=== PATIENT | female | born 1975 | race Caucasian/White ===

== ENCOUNTER 2016-09-01 19:14 | Emergency (ER) | payer OTHER ==
[~2016-09-01] VITALS: Ht 154.9 cm; Wt 93.9 kg
[~2016-09-01 19:14] MED LIST: Ambien PO; LAMOTRIGINE100 MG PO; LAMOTRIGINE25 M2 PO; LaMICtal PO; MACROBID100 MG PO; MACRODANTIN100 MG PO; MOTRIN600 MG PO; QUETIAPINE FUM300 MG PO; RISPERDAL2 MG PO; RISPERIDONE2 MG PO; Risperidone PO; SEROQUEL200 MG PO; SERTRALINE HCL50 MG PO; ULTRAM50 MG PO; ZOLPIDEM TARTRAT5 MG PO
[2016-09-01 19:42] VITALS: BP 102/79
[2016-09-01 20:07] LABS: ADD MIUA? YES; BILIRUBIN NEGATIVE; BLOOD NEGATIVE; COLOR YELLOW ((YELLOW)); GLUCOSE (STRIP) NEGATIVE; KETONES NEGATIVE; LEUKOCYTES NEGATIVE; NITRITE NEGATIVE; PROTEIN (STRIP) NEGATIVE; SPECIFIC GRAVITY 1.029 (1.000-1.030); UROBILINOGEN 0.2 MG/DL (0.2-1.0)
[2016-09-01 20:41] LABS: BACTERIA NONE SEEN; CASTS NONE SEEN /LPF; CRYSTALS NONE SEEN; EPITHELIAL CELLS 4+; MUCUS 4+; RED BLOOD CELLS 0-5 /HPF (0-5); UCUL ADDED? NO; WHITE BLOOD CELLS 0-5 /HPF (0-5)
[2016-09-01] MEDS ORDERED: CIPRO500 MG PO (21:16)
== END 2016-09-01 22:14 | disposition home or self-care (01) ==
LOC: EME 19:14 → RME 19:14
DX: R10.32 Left lower quadrant pain (principal); R11.0 Nausea; F17.200 Nicotine dependence, unspecified, uncomplicated
CPT/HCPCS: 80053; 81003; 84702; 85027; 99281; 99284

== ENCOUNTER 2016-10-02 20:08 | Emergency (ER) | payer OTHER ==
[~2016-10-02] VITALS: Ht 154.9 cm; Wt 95.8 kg
[~2016-10-02 20:08] MED LIST changes: +CIPRO500 MG PO
[2016-10-02] MEDS ORDERED: PEPCID20 MG PO (22:06)
[2016-10-02 23:09] VITALS: BP 111/71
== END 2016-10-02 23:09 | disposition home or self-care (01) ==
LOC: EME 20:08
DX: L29.9 Pruritus, unspecified (principal); L85.9 Epidermal thickening, unspecified
CPT/HCPCS: 73630; 99281; 99284; Q0177

== ENCOUNTER 2016-11-12 14:48 | Emergency (ER) | payer OTHER ==
[~2016-11-12] VITALS: Ht 154.9 cm; Wt 96.0 kg
[~2016-11-12 14:48] MED LIST changes: +PEPCID20 MG PO
[2016-11-12 16:06] LABS: ADD MIUA? YES; BILIRUBIN NEGATIVE; BLOOD NEGATIVE; COLOR YELLOW ((YELLOW)); GLUCOSE (STRIP) NEGATIVE; KETONES NEGATIVE; LEUKOCYTES NEGATIVE; NITRITE NEGATIVE; PROTEIN (STRIP) NEGATIVE; SPECIFIC GRAVITY 1.018 (1.000-1.030); UROBILINOGEN 0.2 MG/DL (0.2-1.0)
[2016-11-12 16:22] LABS: BACTERIA 2+ /HPF; CASTS NONE SEEN /LPF; CRYSTALS NONE SEEN; EPITHELIAL CELLS 3+ /HPF; MUCUS TRACE /LPF; RED BLOOD CELLS RARE /HPF (0-5); WHITE BLOOD CELLS RARE /HPF (0-5)
[2016-11-12] MEDS ORDERED: TRAMADOL HCL50 MG PO (16:25)
[2016-11-12 16:54] LABS: HEMATOCRIT 40.9 % (36.0-46.0); MCH 29.9 PG (29.0-34.0); MCHC 32.3 G/DL (30.0-36.0); MCV 92.5 FL (83-99); MEAN PLAT.VOLUME 10.1 uM^3 (9.5-12.4); PLATELET COUNT 278 K/uL (156-360); RBC DIS.WIDTH-CV 12.8 % (11.8-14.6); RBC DIS.WIDTH-SD 43.8 % (39-53); RED BLOOD COUNT 4.42 M/uL (3.80-5.20); WHITE BLOOD COUNT 9.7 K/uL (4.1-10.2)
[2016-11-12 17:01] LABS: CHLORIDE 106 mEq/L (99-109); POTASSIUM 3.8 mEq/L (3.7-5.4); SODIUM 140 mEq/L (136-147)
[2016-11-12 17:03] LABS: GLUCOSE 101 mg/dL (70-99)
[2016-11-12 17:05] LABS: ANION GAP 7 MEQ/L (2-14); TOTAL BILIRUBIN 0.2 mg/dL (0.0-1.0)
[2016-11-12 17:07] LABS: ALKALINE PHOSPHATASE 51 IU/L (3-129); GFR ESTIMATE (CALCULATED) > 59 mL/min/
[2016-11-12 17:08] LABS: UREA NITROGEN (BUN) 13 mg/dL (9-23)
[2016-11-12 17:10] LABS: LIPASE 11 U/L (1.0-51.0)
[2016-11-12] MEDS ORDERED: ZOFRAN4 MG PO (20:57)
[2016-11-12 21:04] VITALS: BP 111/60
[2016-11-17 12:25] LABS: CHLAMYDIA TRACHOMATIS NEGATIVE; NEISSERIA GONORRHOEAE NEGATIVE
== END 2016-11-12 21:05 | disposition home or self-care (01) ==
LOC: EME 14:48
PROVIDERS: Nurse Practitioner Family; Physician Assistant
DX: N20.0 Calculus of kidney (principal); R10.30 Lower abdominal pain, unspecified; F17.200 Nicotine dependence, unspecified, uncomplicated
CPT/HCPCS: 74177; 80053; 81003; 83690; 85027; 87210; 87491; 87591; 99281; 99284; J7030

== ENCOUNTER 2017-06-14 00:19 | Emergency (ER) | payer OTHER ==
[~2017-06-14] VITALS: Ht 154.9 cm; Wt 103.0 kg
[~2017-06-14 00:19] MED LIST changes: +TRAMADOL HCL50 MG PO; +ZOFRAN4 MG PO
[2017-06-14 01:01] LABS: HEMATOCRIT 37.7 % (36.0-46.0); MCH 31.6 PG (29.0-34.0); MCHC 33.7 G/DL (30.0-36.0); MCV 93.8 FL (83-99); MEAN PLAT.VOLUME 10.2 uM^3 (9.5-12.4); PLATELET COUNT 222 K/uL (156-360); RBC DIS.WIDTH-CV 13.7 % (11.8-14.6); RBC DIS.WIDTH-SD 46.6 % (39-53); RED BLOOD COUNT 4.02 M/uL (3.80-5.20); WHITE BLOOD COUNT 11.2 K/uL (4.1-10.2)
[2017-06-14 01:08] LABS: CHLORIDE 106 mEq/L (99-109); POTASSIUM 3.7 mEq/L (3.7-5.4); SODIUM 138 mEq/L (136-147)
[2017-06-14 01:10] LABS: GLUCOSE 92 mg/dL (70-99)
[2017-06-14 01:11] LABS: ANION GAP 11 MEQ/L (2-14)
[2017-06-14 01:14] LABS: GFR ESTIMATE (CALCULATED) > 59 mL/min/
[2017-06-14 01:15] LABS: UREA NITROGEN (BUN) 16 mg/dL (9-23)
[2017-06-14 01:26] LABS: ADD MIUA? YES; BILIRUBIN NEGATIVE; BLOOD NEGATIVE; COLOR YELLOW ((YELLOW)); GLUCOSE (STRIP) NEGATIVE; KETONES NEGATIVE; LEUKOCYTES MODERATE; NITRITE NEGATIVE; PROTEIN (STRIP) NEGATIVE; SPECIFIC GRAVITY 1.024 (1.000-1.030); UROBILINOGEN 0.2 MG/DL (0.2-1.0)
[2017-06-14 01:52] LABS: BACTERIA 2+ /HPF; CASTS NONE SEEN /LPF; CRYSTALS NONE SEEN; EPITHELIAL CELLS 3+ /HPF; MUCUS NONE SEEN /LPF; RED BLOOD CELLS NONE SEEN /HPF (0-5); UCUL ADDED? YES; WHITE BLOOD CELLS 0-5 /HPF (0-5)
[2017-06-14] MEDS ORDERED: MACROBID100 MG PO (02:45)
[2017-06-14 03:17] VITALS: BP 148/87
== END 2017-06-14 03:17 | disposition home or self-care (01) ==
LOC: EME 00:19
DX: N39.0 Urinary tract infection, site not specified (principal); R10.9 Unspecified abdominal pain; Z87.440 Personal history of urinary (tract) infections; Z87.442 Personal history of urinary calculi; F17.200 Nicotine dependence, unspecified, uncomplicated; F32.9 Major depressive disorder, single episode, unspecified; K21.9 Gastro-esophageal reflux disease without esophagitis; Z88.1 Allergy status to other antibiotic agents
CPT/HCPCS: 74176; 80048; 81003; 85027; 87086

== ENCOUNTER 2018-03-28 14:31 | Emergency (ER) | payer OTHER ==
[~2018-03-28] VITALS: Ht 154.9 cm; Wt 111.6 kg
[2018-03-28 15:15] LABS: APPEARANCE CLOUDY ((CLEAR)); BILIRUBIN NEGATIVE; BLOOD SMALL; COLOR YELLOW ((YELLOW)); GLUCOSE (STRIP) NEGATIVE; KETONES 5; LEUKOCYTES TRACE; NITRITE NEGATIVE; PROTEIN (STRIP) NEGATIVE; SPECIFIC GRAVITY 1.024 (1.000-1.030); UROBILINOGEN 0.2 MG/DL (0.2-1.0)
[2018-03-28 15:19] LABS: BACTERIA RARE /HPF; EPITHELIAL CELLS 3+ /HPF; MUCUS 2+ /LPF; RED BLOOD CELLS 0-5 /HPF (0-5); WHITE BLOOD CELLS 0-5 /HPF (0-5)
[2018-03-28 15:27] LABS: HEMATOCRIT 39.3 % (36.0-46.0); HEMOGLOBIN 13.3 G/DL (11.9-15.5); MCHC 33.8 G/DL (30.0-36.0); MCV 91.6 FL (83-99); PLATELET COUNT 243 K/uL (156-360); RBC DIS.WIDTH-SD 47.6 % (39-53); RED BLOOD COUNT 4.29 M/uL (3.80-5.20); WHITE BLOOD COUNT 12.6 K/uL (4.1-10.2)
[2018-03-28 15:37] LABS: CHLORIDE 105 mEq/L (99-109); POTASSIUM 3.7 mEq/L (3.7-5.4); SODIUM 140 mEq/L (136-147)
[2018-03-28 15:38] LABS: GLUCOSE 111 mg/dL (70-99)
[2018-03-28 15:42] LABS: CREATININE 0.7 mg/dL (0.6-1.3); GFR ESTIMATE (CALCULATED) > 59 mL/min/
[2018-03-28 15:43] LABS: UREA NITROGEN (BUN) 16 mg/dL (9-23)
[2018-03-28 15:50] LABS: QUANTITATIVE HCG < 4.0 MIU/ML
[2018-03-28] MEDS ORDERED: ZOFRAN4 MG PO (16:50)
[2018-03-28] MEDS ORDERED: MOTRIN800 MG PO (16:50)
[2018-03-28] MEDS ORDERED: KEFLEX500 MG PO (16:53)
[2018-03-28 17:14] VITALS: BP 133/84
== END 2018-03-28 17:25 | disposition home or self-care (01) ==
LOC: EME 14:31
PROVIDERS: Nurse Practitioner Family
DX: N39.0 Urinary tract infection, site not specified (principal); N20.0 Calculus of kidney; K76.0 Fatty (change of) liver, not elsewhere classified; F31.9 Bipolar disorder, unspecified; Z87.442 Personal history of urinary calculi; Z88.2 Allergy status to sulfonamides
CPT/HCPCS: 74176; 80048; 81003; 84702; 85027; 87086; 99281; 99284; J1885